=== PATIENT | male | born 1960 | race Caucasian/White ===

== ENCOUNTER 2024-10-10 15:23 | Emergency (ER) | payer MEDICARE, SELFPAY ==
--- NOTE | 2024-10-10 15:28 | EKG_ITS ---
[facility] Test Date: 2024-10-10 Pat Name: CASTRO MORA Department: Room: - Gender: Male Senior Policy Associate: : 1960 Requested By: Fab Pineda Order Number: [id number] Reading MD: aFb Pineda Measurements Intervals [place] Rate: 81 P: 26 CA: 191 QRS: -45 QRSD: 163 T: 49 QT: 400 QTc: 467 Interpretive Statements SINUS RHYTHM INTRAVENTRICULAR CONDUCTION DELAY [130+ ms QRS DURATION] LATERAL MYOCARDIAL INFARCTION , OF INDETERMINATE AGE [40+ ms Q WAVE AND/OR ST/T ABNORMALITY IN I/aVL/V5/V6] No previous ECG available for comparison /[id number]
[2024-10-10 15:38] VITALS: BP 135/82; PULSE 84; RESP 22; TEMP 36.6; O2SAT 99
--- NOTE | 2024-10-10 15:42 | XR_ITS ---
Examination: PA lateral chest 2 views TECHNIQUE: Upright PA lateral chest 2 views Exam date and time: October 10, 2024 1555 hours INDICATIONS: Onset chest pain today. FINDINGS: Normal heart size Cardiac leads satisfactory position No pneumonia or pulmonary edema Moderate thoracic spondylosis IMPRESSION: No active disease
--- NOTE | 2024-10-10 15:42 | PD.EDRME ---
Rapid Medical Screening Exam RME Arrival date/time: 10/10/24 15:23 64-year-old male presents er department today for complaint of chest pain cough congestion Chief Complaint: Chest Pain Vital signs: Vital Signs Temperature 97.9 F 10/10/24 15:38 Pulse Rate 84 10/10/24 15:38 Respiratory Rate 22 H 10/10/24 15:38 Blood Pressure 135/82 H 10/10/24 15:38 Pulse Oximetry (%) 99 10/10/24 15:38 Oxygen Delivery Method Room Air 10/10/24 15:38
[2024-10-10 16:13] LABS: Basophils # (Auto) 0.1 Thou/mm3 (0.0-0.2); Basophils % (Auto) 1 % (0-2.5); Eosinophils # (Auto) 0.1 Thou/mm3 (0.0-0.5); Eosinophils % (Auto) 1 % (0-10); Hemoglobin 13.7 g/dL (13.5-16.0); Immature Granulocytes % (Auto) 0 % (0-0); Immature Granulocytes Auto 0.02 Thou/mm3 (0.00-0.00); Lymphocytes # (Auto) 1.8 Thou/mm3 (1.0-4.8); Lymphocytes % (Auto) 20 % (10-50); Mean Corpuscular HGB Conc 36.1 g/dl (31.0-37.0); Mean Corpuscular Hemoglobin 32.5 pg (25.0-35.0); Mean Corpuscular Volume 90 fL (80-100); Monocytes # (Auto) 0.8 Thou/mm3 (0.0-0.8); Monocytes % (Auto) 9 % (0-12); Neutrophils % (Auto) 69 % (37-80); Nucleated Red Blood Cell % 0 /100 WBC (0); Platelet Count 276 Thou/mm3 (140-440); RDW Standard Deviation 39.4 fL (35.1-43.9); Red Blood Count 4.21 Miln/mm3 (4.50-5.90); White Blood Count 8.7 Thou/mm3 (3.8-10.6)
[2024-10-10 16:31] LABS: Partial Thromboplastin Time 27.5 Seconds (22.0-36.0); Prothrombin Time 10.9 Seconds (9.0-12.2)
[2024-10-10 16:35] LABS: B-Type Natriuretic Peptide 76 pg/mL (0-100)
[2024-10-10 16:46] LABS: Alanine Aminotransferase 8 U/L (10-49); Albumin, Serum 4.5 gm/dL (3.4-4.8); Albumin/Globulin Ratio 1.7 (1.2-2.2); Alkaline Phosphatase 108 U/L (46-116); Anion Gap 7 (7-16); Aspartate Amino Transferase 14 U/L (0-34); BUN/Creatinine Ratio 10 Ratio (12-20); Bilirubin,Total 0.9 mg/dL (0.3-1.2); Blood Urea Nitrogen 13 mg/dL (9-23); Calcium 9.8 mg/dL (8.3-10.6); Calcium (Corrected) 9.8 mg/dL (8.5-10.1); Carbon Dioxide 30.2 mMol/L (20.0-31.0); Chloride 103 mMol/L (98-107); Creatinine (Component) 1.3 mg/dL (0.6-1.3); Globulin 2.6 gm/dL (2.3-3.5); Glucose 131 mg/dL (74-106); Magnesium 1.3 mg/dL (1.6-2.6); Osmolality,Calculated 281 (275-295); Potassium 4.6 mMol/L (3.4-5.1); Sodium 140 mMol/L (136-145); Total Protein 7.1 gm/dL (5.7-8.2); Troponin I < 0.020 ng/mL (0.0-0.045); eGFR > 60 See Note
[2024-10-10 19:33] VITALS: BP 108/71; PULSE 73; RESP 19; TEMP 36.6; O2SAT 99
--- NOTE | 2024-10-10 21:09 | PC.NURSE ---
PT CALLED N/A 1999, 2029, 2108.
== END 2024-10-10 21:10 | disposition left against medical advice (07) ==
LOC: SERX 16:18
PROVIDERS: Nurse Practitioner Primary Care; Emergency Provider Emergency Medicine
DX: R07.9 Chest pain, unspecified (principal); Z53.29 Procedure and treatment not carried out because of patient's decision for other reasons
CPT/HCPCS: 36415; 71046; 80053; 80307; 81001; 83735; 83880; 84484; 85025; 85610; 85730; 87400; 87811; 93005; 99281

== ENCOUNTER 2024-10-26 09:22 | Emergency (ER) | payer MEDICARE, SELFPAY ==
[2024-10-26 09:24] VITALS: BMI 26.6
[2024-10-26 09:37] VITALS: BP 125/84; PULSE 83; RESP 20; TEMP 36.6; O2SAT 98
--- NOTE | 2024-10-26 09:41 | EDRME_ITS ---
Rapid Medical Screening Exam [facility] Arrival date/time: 10/26/24 09:22 64-year-old male with no known medical history but has a pacemaker in place presents to the emergency room with a chief complaint of right sided numbness, weakness, fatigue x 2 days. 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 I have greeted and performed a focused initial assessment of this patient. A comprehensive ED assessment and evaluation of the patient, analysis of all test results, and completion of the medical decision making process will be conducted by additional ED providers. Chief Complaint: Neuro Symptoms/Deficit Time Seen by Provider: 10/26/24 09:34 Vital signs: Vital Signs Temperature 98 F 10/26/24 09:37 Pulse Rate 83 10/26/24 09:37 Respiratory Rate 20 10/26/24 09:37 Blood Pressure 125/84 10/26/24 09:37 Pulse Oximetry (%) 98 10/26/24 09:37 Oxygen Delivery Method Room Air 10/26/24 09:37 Vital signs reviewed by provider: Yes
--- NOTE | 2024-10-26 09:41 | EKG_ITS ---
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: : 1960 Requested By: Tremaine Velazco Order Number: [id number] Reading MD: Tremaine Velazco Measurements Intervals [place] Rate: 82 P: 28 MA: 190 QRS: -42 QRSD: 164 T: 80 QT: 397 QTc: 466 Interpretive Statements SINUS RHYTHM LEFT AXIS DEVIATION [QRS AXIS < -30] RIGHT BUNDLE BRANCH BLOCK [120+ ms QRS DURATION, UPRIGHT V1, 40+ ms S IN I/aVL/V4/V5/V6] LEFT VENTRICULAR HYPERTROPHY AND ST-T CHANGE [VOLTAGE CRITERIA PLUS ST/T ABNORMALITY] POSSIBLE SEPTAL MYOCARDIAL INFARCTION , OF INDETERMINATE AGE [30 ms Q WAVE IN V1/V2] Compared to ECG 10/10/2024 15:30:27 Left-axis deviation now present Right bundle-branch block now present Left ventricular hypertrophy now present ST (T wave) deviation now present Intraventricular conduction delay no longer present Myocardial infarct finding still present /store/S0/[id number]/[id number].pdf
--- NOTE | 2024-10-26 09:41 | XR_ITS ---
Indication: PA lateral chest 2 views TECHNIQUE: Upright PA lateral chest 2 views Date and time: October 26, 2024 0958 hours Comparison October 10, 2024 INDICATIONS: Chest pain radiating to left shoulder beginning one week ago. FINDINGS: Normal heart size Transvenous dual-chamber bipolar cardiac leads satisfactory position. No pneumonia or pulmonary edema IMPRESSION: No active disease
--- NOTE | 2024-10-26 09:41 | XR_ITS ---
Examination: CT brain head without contrast. 2-D sagittal coronal reconstructions Date and time of exam:October 26, 2024 0950 hours INDICATIONS: Onset right-sided body numbness today CTDI: vol (mGy):51.7 DLP: (mGycm):1038 Technique: Multiple CT axial sections of the brain have been obtained, 5 mm slice thickness. Contrast has not been administered. 2-D sagittal, coronal reconstructions have been obtained Low dose protocols were performed. One or more of the following dose reduction techniques were used; automated exposure control, adjustment of the mA and/or KV according to patient size, use of iterative reconstruction technique. Findings: No significant ventricular enlargement. Intra-axial or extra-axial hemorrhage density is not seen. No mass effect or midline shift Basal cisterns are not remarkable. Fourth ventricle is midline. Cranial vault intact. Impression: Negative for acute hemorrhage, mass effect or midline shift As clinically warranted, consider brain MRI follow-up stroke protocol
[2024-10-26 10:11] VITALS: BP 135/88; PULSE 82; RESP 18; TEMP 36.7; O2SAT 97
[2024-10-26 10:19] VITALS: PULSE 75
[2024-10-26 10:26] LABS: Basophils % (Auto) 1 % (0-2.5); Eosinophils # (Auto) 0.3 Thou/mm3 (0.0-0.5); Eosinophils % (Auto) 4 % (0-10); Hematocrit 39.2 % (41.0-53.0); Hemoglobin 14.4 g/dL (13.5-16.0); Immature Granulocytes % (Auto) 0 % (0-0); Immature Granulocytes Auto 0.01 Thou/mm3 (0.00-0.00); Lymphocytes # (Auto) 1.7 Thou/mm3 (1.0-4.8); Lymphocytes % (Auto) 30 % (10-50); Mean Corpuscular HGB Conc 36.7 g/dl (31.0-37.0); Mean Corpuscular Hemoglobin 32.2 pg (25.0-35.0); Mean Corpuscular Volume 88 fL (80-100); Monocytes # (Auto) 0.5 Thou/mm3 (0.0-0.8); Monocytes % (Auto) 9 % (0-12); Neutrophils # (Auto) 3.2 Thou/mm3 (1.8-7.7); Neutrophils % (Auto) 56 % (37-80); Nucleated Red Blood Cell % 0 /100 WBC (0); Platelet Count 261 Thou/mm3 (140-440); RDW Standard Deviation 40.2 fL (35.1-43.9); Red Blood Count 4.47 Miln/mm3 (4.50-5.90); White Blood Count 5.7 Thou/mm3 (3.8-10.6)
--- NOTE | 2024-10-26 10:27 | PD.EDWEAK ---
ED Weakness RME/HPI General Chief complaint: Neuro Symptoms/Deficit Stated complaint: LEFT ARM NUMBNESS AND WEAKNESS X2DAY Time Seen by Provider: 10/26/24 09:34 Arrival date/time: 10/26/24 09:22 RME / HPI RME / HPI Narrative: 10/26/24 09:22 64-year-old male with no known medical history but has a pacemaker in place presents to the emergency room with a chief complaint of right sided numbness, weakness, fatigue x 2 days. Patient also states he has received calls from his [employer] field technician to come to the emergency room because he needs a pacemaker replaced. I have greeted and performed a focused initial assessment of this patient. A comprehensive ED assessment and evaluation of the patient, analysis of all test results, and completion of the medical decision making process will be conducted by additional ED providers. DR. LUNDY MAIN ED EVALUATION 64 year old male with history significant for CAD, s/p pacemaker placement, s/p spinal cord stimulator, diabetes, and peripheral neuropathy affecting both hands and feet presents to the ED for evaluation of right arm numbness and weakness that began this morning. He reports complete loss of sensation in the right arm, including inability to differentiate between hot and cold, as well as marked weakness. Adding he is unable to lift his right arm above shoulder. Patient states a history of intermittent arm numbness, which he attributes to his pre-existing neuropathy. However, stated today's symptoms are more severe and accompanied by progressive weakness. States he has had multiple falls today. Concerned by the worsening symptoms, he contacted his [employer] field technician in [place], who advised him to come to the ED. He denies any associated chest pain, shortness of breath, cough, fevers, chills, or night sweats. He also denies nausea, vomiting, diarrhea, or constipation. Denies dysuria, frequency, or urgency. The patient recently moved from [place] and has not yet established care with a local provider. He reports having run out of several of his medications, including his prescribed blood thinner. Additionally, he is approximately 9 months overdue for his pacemaker recheck. Related Data Allergies Allergy/AdvReac Type Severity Reaction Status Date / Time methadone Allergy Verified 10/26/24 09:27 metoclopramide (From Reglan) Allergy Verified 10/26/24 09:27 rye grass Allergy Verified 10/26/24 09:27 Review of Systems Review of Systems Narrative Review of Systems: GEN: No fever, no chills, no weight loss EYES: No discharge, no visual changes, no pain HEENT: No ear pain, no congestion, no sore throat PULM: No shortness of breath, no cough, no congestion CV: No chest pain, no dyspnea on exertion, no palpitations GI: No nausea, no vomiting, no diarrhea, no pain, no constipation : No frequency, no urgency, no dysuria MUSC/SKEL: +right arm numbness, no back pain SKIN: No rash PSYCH: No hallucinations, no depression HEME/LYMPH: No easy bleeding or bruising tendencies NEURO: +rigth arm weakness, no headache Past Medical History Past Medical History NEUROLOGIC: Positive Cerebrovascular Accident and Transient Ischemic Attacks (TIA) CARDIAC: Positive Cardiac Disorders, Heart Murmur, Hypercholesterolemia, Congestive Heart Failure and Hypertension RESPIRATORY: Positive Chronic Obstructive Pulmonary Disease (COPD) and Sleep Apnea (USE BIPA AT NIGHT) GASTROINTESTINAL: Positive Gastrointestinal Disorders (gastroparesis), Diverticulitis, Diverticulosis and Irritable Bowel GENITOURINARY: Positive Prostate Cancer (PT BEING TESTED, NO RESLUTS YET 10/26/24) and Benign Prostatic Hyperplasia ENDOCRINE: Positive Diabetes Mellitus Type 2 and Parathyroid Disease PSYCHO/SOCIAL: Positive Depression and Anxiety OTHER HISTORY: Positive Falls, Blood Transfusions and Prostate Cancer (PT BEING TESTED, NO RESLUTS YET 10/26/24) Surgical History SURGICAL: Positive Cardiac Catheterization, Pacemaker and Amputation (RIGHT 2ND DIGIT) Social History SMOKING STATUS: Never smoker ED Exam Narrative Physical exam: GENERAL APPEARANCE: alert and oriented x 4, well-developed, well-nourished, no acute distress HEENT: Normocephalic, atraumatic; pupils equal, round, reactive to light; EOMI; mucous membranes pink, moist; oropharynx clear NECK: Supple LUNGS: CTABL; no wheezes, no rales, no rhonchi HEART: Regular rate, regular rhythm; normal S1, S2; no murmurs ABDOMEN: non distended; normal BS; soft, no tenderness, no guarding, no rebound; no masses, no organomegaly, no hernia BACK: no CVA tenderness EXTREMITIES: prior right fourth finger partial amputation, right arm subjective decreased sensation, right arm strength intact; atraumatic; no edema NEUROLOGIC: awake; alert and oriented x4; cranial nerves II-XII grossly intact; no focal or motor deficits, right arm subjective decreased sensation, right arm strength intact PSYCHIATRIC: appropriate mood and affect SKIN: warm, dry, normal color; no rashes Course Quality Measures none Orders Category Date Time Status Blood glucose [Bedside Blood Glucose] NOW Care 10/26/24 10:18 Completed Senior Policy Associate Q4H START 00 Care 10/26/24 10:17 Completed EKG (ED ONLY) *Do not use* NOW Care 10/26/24 09:41 Completed Insert IV NOW Care 10/26/24 10:[address] head/brain wo con Stat Exams 10/26/24 09:41 Completed EKG (ED Only) Stat Exams 10/26/24 09:41 Draft XR chest 2V Stat Exams 10/26/24 09:41 Completed B-Type Natriuretic Peptide Stat Lab 10/26/24 10:10 Completed CBC Stat Lab 10/26/24 10:10 Completed Comprehensive Metabolic Panel Stat Lab 10/26/24 10:10 Completed Drug Screen,Urine Stat Lab 10/26/24 11:48 Completed Magnesium Stat Lab 10/26/24 10:10 Completed Partial Thromboplastin Time Stat Lab 10/26/24 10:10 Completed Prothrombin Time with INR Stat Lab 10/26/24 10:10 Completed Troponin I Stat Lab 10/26/24 10:10 Completed Urinalysis Stat Lab 10/26/24 11:48 Completed KCL 10% Liq UDC 15 ML Med 10/26/24 11:21 Discontinued 40 meq PO X1 ONE Magnesium Sulfate 2 GM Ivpb [Magnesium Sulfate Ivpb] Med 10/26/24 11:21 Discontinued 2 gm in 50 ml IV X1 Vital Signs Vital signs: Vital Signs Temperature 98 F 10/26/24 09:37 Pulse Rate 83 10/26/24 09:37 Respiratory Rate 20 10/26/24 09:37 Blood Pressure 125/84 10/26/24 09:37 Pulse Oximetry (%) 98 10/26/24 09:37 Oxygen Delivery Method Room Air 10/26/24 09:37 Pulse ox is 98% on room air which is adequate. Weakness MDM Narrative MDM Narrative:: Nasra Dobbs am scribing for and in the presence of Dr. Lundy. Patient was provided resources for the local clinics. Patient remains clinically stable throughout the emergency department visit. We reviewed all the results, analysis, and treatment plans. Patient is amenable to discharge. Strict return precautions were outlined. Patient was discharged in stable condition. Patient data External records reviewed:: [facility] previous records (I reviewed RME note from o10/10/2024 ) Clinical information provided by:: patient Social determinants that could affect healthcare access:: none Patient has the following chronic illnesses:: CAD, s/p pacemaker placement, s/p spinal cord stimulator, diabetes, and peripheral neuropathy affecting both hands and feet How is presenting disease/condition affected by chronic disease/condition?: exacerbated by Evaluation data The following diagnostics were reviewed and interpreted by me:: lab results, radiology exam(s) and EKG tracing(s) (EKG @ 09:47 AM. Sinus rhythm, rate 82, left axis deviation, rigth bundle branch block, no acute ischemia. ) Lab and/or radiology exams considered but not ordered:: None Interpretation Summary: Ordering Physician: Tremaine Valderrama Date of Service: 10/26/24 Procedure(s): XR chest 2V Accession Number(s): [id number] cc: Tremaine Valderrama; Mauricio Garibay MD~ Indication: PA lateral chest 2 views TECHNIQUE: Upright PA lateral chest 2 views Date and time: October 26, 2024 0958 hours Comparison October 10, 2024 INDICATIONS: Chest pain radiating to left shoulder beginning one week ago. FINDINGS: Normal heart size Transvenous dual-chamber bipolar cardiac leads satisfactory position. No pneumonia or pulmonary edema IMPRESSION: No active disease Dictated By: Mauricio Garibay MD Signed By: <Electronically signed by Mauricio Garibay MD in [place]> 10/26/24 1013 Ordering Physician: Tremaine Valderrama Date of Service: 10/26/24 Procedure(s): CT head/brain wo con Accession Number(s): [id number] cc: Tremaine Valderrama; Mauricio Garibay MD~ Examination: CT brain head without contrast. 2-D sagittal coronal reconstructions Date and time of exam:October 26, 2024 0950 hours INDICATIONS: Onset right-sided body numbness today CTDI: vol (mGy):51.7 DLP: (mGycm):1038 Technique: Multiple CT axial sections of the brain have been obtained, 5 mm slice thickness. Contrast has not been administered. 2-D sagittal, coronal reconstructions have been obtained Low dose protocols were performed. One or more of the following dose reduction techniques were used; automated exposure control, adjustment of the mA and/or KV according to patient size, use of iterative reconstruction technique. Findings: No significant ventricular enlargement. Intra-axial or extra-axial hemorrhage density is not seen. No mass effect or midline shift Basal cisterns are not remarkable. Fourth ventricle is midline. Cranial vault intact. Impression: Negative for acute hemorrhage, mass effect or midline shift As clinically warranted, consider brain MRI follow-up stroke protocol Dictated By: Mauricio Garibay MD Signed By: <Electronically signed by Mauricio Garibay MD in [place]> 10/26/24 1005 Medications / Prescriptions Medications or Prescriptions considered but not ordered:: None Medication administrations:: Medication Administration History Discontinued Medications Magnesium Sulfate (Magnesium Sulfate Ivpb) 2 gm in 50 mls @ 25 mls/hr IV X1 ONE Stop: 10/26/24 13:20 Last Infusion: 10/26/24 14:00 Dose: Infused Documented By: Admin: 10/26/24 12:11 Dose: 25 mls/hr Documented By: TATE Potassium Chloride (Potassium Chloride 10% 20 Meq/15 Ml Udc) 40 meq PO X1 ONE Stop: 10/26/24 11:22 Last Admin: 10/26/24 12:02 Dose: 40 meq Documented By: TATE See above Consultations Consultation(s) initiated? (list below): No Diagnosis Weakness Differential Diagnosis: acute myocardial infarction, hypoglycemia, hypothyroidism, sepsis and dehydration Most likely diagnosis given after review of the tests above:: Paresthesia of right arm Weakness Admission Indicated Admission indicated?: not indicated Admission Request Was there a request for admission?: No Disposition Plan Disposition Plan: Discharge Discharge Attestation Discharge Attestation: The patient and all family members were given an opportunity to ask questions and understood the discharge instructions. Discharge instructions specifically effects, indications for sooner follow up or return to the emergency department, and the expected course of current diagnosis. Patient condition: Stable Discharge Plan Plan Patient Disposition: HOME (Self Care) Prescriptions/Referrals Referrals: No Primary/Family,Physician [Primary Care Provider] - In 1 week Problem List Clinical Impression: Paresthesia of right arm, Generalized weakness Patient/Caregiver Discharge Instructions Education Materials: ED Weakness (Uncertain Cause), ED Paraesthesias Print Language: [place] Stand Alone Forms: Melissa Award Info., Patient Portal Info Letter
[2024-10-26 10:41] LABS: Alanine Aminotransferase 15 U/L (10-49); Albumin, Serum 4.6 gm/dL (3.4-4.8); Albumin/Globulin Ratio 1.8 (1.2-2.2); Alkaline Phosphatase 131 U/L (46-116); Anion Gap 11 (7-16); Aspartate Amino Transferase 20 U/L (0-34); BUN/Creatinine Ratio 8 Ratio (12-20); Bilirubin,Total 0.5 mg/dL (0.3-1.2); Blood Urea Nitrogen 9 mg/dL (9-23); Carbon Dioxide 25.5 mMol/L (20.0-31.0); Chloride 107 mMol/L (98-107); Creatinine (Component) 1.2 mg/dL (0.6-1.3); Estimated Creatinine Clearance 58.1 mL/min (>60); Globulin 2.6 gm/dL (2.3-3.5); Glucose 117 mg/dL (74-106); Magnesium 1.4 mg/dL (1.6-2.6); Osmolality,Calculated 284 (275-295); Potassium 3.4 mMol/L (3.4-5.1); Sodium 143 mMol/L (136-145); Total Protein 7.2 gm/dL (5.7-8.2); Troponin I < 0.020 ng/mL (0.0-0.045); eGFR > 60 See Note
[2024-10-26 10:51] LABS: B-Type Natriuretic Peptide 62 pg/mL (0-100)
[2024-10-26 11:14] LABS: Partial Thromboplastin Time 27.8 Seconds (22.0-36.0); Prothrombin Time 10.7 Seconds (9.0-12.2)
[2024-10-26 12:00] VITALS: BP 119/71; PULSE 60; RESP 16; TEMP 36.7; O2SAT 97
[2024-10-26] MEDS: POTASSIUM CHLORIDE 10% 20 MEQ/15 ML UDC 40 MEQ PO (12:02)
[2024-10-26 12:06] LABS: Collection Type, Urine Clean Catch
[2024-10-26] MEDS: Magnesium Sulfate 2 GM Ivpb 2 GM/50 ML BAG IV (12:11)
[2024-10-26 12:25] LABS: Bacteria,Urine Rare; Bilirubin,Urine Negative (Negative); Blood,Urine Negative (Negative); Clarity,Urine Clear (Clear/Hazy); Color,Urine Lt-Yellow (Lt Yel-Yel); Glucose, Urine Negative (Negative); Ketones,Urine Negative (Negative); Leukocyte Esterase,Urine Negative (Negative); Nitrite,Urine Negative (Negative); Protein,Urine Negative (Neg - Trace); RBC,Urine < 1 /hpf (0-3); Specific Gravity,Urine 1.007 (1.001-1.035); Squamous Epithelial Cell,Urine < 1 /hpf (0-5); Urobilinogen,Urine Negative mg/dL (0.0-1.0); WBC,Urine < 1 /hpf (0-5)
[2024-10-26 13:07] LABS: Amphetamine/Methamp Scrn,U Negative (Negative); Barbiturate Screen,Urine Negative (Negative); Benzodiazepines Screen,Urine Positive (Negative); Benzoylecgonine Screen, Ur Negative (Negative); Fentanyl Screen,Urine Negative (Negative); Opiate Screen,Urine Negative (Negative); THC Screen,Urine Negative (Negative)
[2024-10-26 14:06] VITALS: BP 129/83; PULSE 79; RESP 19; TEMP 36.8; O2SAT 94
[2024-10-26 14:19] VITALS: BP 130/79; PULSE 70; RESP 16; TEMP 36.7; O2SAT 99
== END 2024-10-26 14:20 | disposition home or self-care (01) ==
PROVIDERS: Nurse Practitioner Family; Emergency Provider Emergency Medicine
DX: E11.42 Type 2 diabetes mellitus with diabetic polyneuropathy (principal); R53.1 Weakness; Z95.0 Presence of cardiac pacemaker; I25.10 Atherosclerotic heart disease of native coronary artery without angina pectoris
CPT/HCPCS: 36415; 70450; 71046; 80053; 80307; 81001; 83735; 83880; 84484; 85025; 85610; 85730; 93005; 96365; 96366; 99284; J3475; A9270